=== PATIENT | female | born 1950 | race Caucasian/White ===

== ENCOUNTER 2017-04-25 05:19 | Day surgery (SDC) | payer MEDICARE, BC, OTHER ==
--- NOTE | ~2017-04-25 | EGD ---
EGD REPORT [facility] [address] [place] [address] NAME: ROSA MARIA SALAS : [birth year] STATUS : REG [facility]#: [id number] AGE: 66 ADM/REG DATE : 04/25/17 MR#: [id number] REPORT SERV DATE: 04/25/17 DICTATED BY: SUZETTE RENEE DATE: 04/25/17 REPORT STATUS : Draft [facility]ANS[facility]IBED [facility]: [facility] DATE: 04/25/17 Endoscopy Center Patient Name: Rosa Maria Salas Date of : 1950 Attending MD: MIKE RENEE MD Procedure Date No Time: 04/25/2017 Procedure: Colonoscopy Indications: Screening for colorectal malignant neoplasm, Last colonoscopy: September 2003 Referring MD: IESHA TRACY Medicines: See the Anesthesia note for documentation of the administered medications Complications: No immediate complications. Estimated blood loss: Minimal. Procedure: Pre-Anesthesia Assessment: - ASA Grade Assessment: III - A patient with severe systemic disease. After I obtained informed consent, the scope was passed under direct vision. Throughout the procedure, the patient's blood pressure, pulse, and oxygen saturations were monitored continuously. The PCF [id number] was introduced through the anus and advanced to the terminal ileum. The ileocecal valve, appendiceal orifice, terminal ileum and rectum were photographed. The entire colon was examined. The colonoscopy was performed without difficulty. The patient tolerated the procedure well. The quality of the bowel preparation was adequate. Findings: The perianal and digital rectal examinations were normal. The terminal ileum appeared normal. A single (solitary) eight mm ulcer was found in the proximal ascending colon. No bleeding was present. Biopsies were taken with a cold forceps for histology. A sessile polyp was found in the cecum. The polyp was 7 mm in size. The polyp was removed with a cold snare. Resection and retrieval were complete. A sessile polyp was found in the mid ascending colon. The polyp was 5 mm in size. The polyp was removed with a cold snare. Resection and retrieval were complete. A few medium-mouthed diverticula were found in the entire colon. Non-bleeding internal hemorrhoids were found, and they were Grade I (internal hemorrhoids that do not prolapse). No other significant abnormalities were identified in a careful examination of the remainder of the colon. EGD REPORT [place] [id number] [facility] [place]. [address] NAME: ROSA MARIA SALAS : [birth year] STATUS : [facility]#: [id number] AGE: 66 ADM/REG DATE : 04/25/17 MR#: [id number] REPORT SERV DATE: 04/25/17 DICTATED BY: SUZETTE RENEE DATE: 04/25/17 REPORT STATUS : Draft TRANSCRIBED BY: [employer] DATE: 04/25/17 Impression: - The examined portion of the ileum was normal. - A single (solitary) ulcer in the proximal ascending colon. Biopsied. - One 7 mm polyp in the cecum. Resected and retrieved. - One 5 mm polyp in the mid ascending colon. Resected and retrieved. - Diverticulosis in the entire examined colon. - Non-bleeding internal hemorrhoids. Recommendation: - Patient has a contact number available for emergencies. The signs and symptoms of potential delayed complications were discussed with the patient. Return to normal activities tomorrow. Written discharge instructions were provided to the patient. - High fiber diet indefinitely. - Discharge patient to home. - Continue present medications. - Await pathology results. - Repeat colonoscopy in 3 years for surveillance. - Mesenteric doppler ordered please check result Procedure Code(s): --- Professional --- 04488, Colonoscopy, flexible, proximal to splenic flexure; with removal of tumor(s), polyp(s), or other lesion(s) by snare technique 04446, 59, Colonoscopy, flexible, proximal to splenic flexure; with biopsy, single or multiple Diagnosis Code(s): --- Professional --- K64.0, First degree hemorrhoids K57.30, Diverticulosis of large intestine without perforation or abscess without bleeding K63.3, Ulcer of intestine D12.2, Benign neoplasm of ascending colon D12.0, Benign neoplasm of cecum Z12.11, Encounter for screening for malignant neoplasm of colon CPT copyright 2013 [employer]. All rights reserved. The codes documented in this report are preliminary and upon structural engineer review may be revised to meet current compliance requirements. MIKE RENEE MD EGD REPORT [facility] [address] [id number] NAME: ROSA MARIA SALAS : [birth year] STATUS : REG [facility] PAT#: [id number] AGE: 66 ADM/REG DATE : 04/25/17 MR#: [id number] REPORT SERV DATE: 04/25/17 DICTATED BY: SUZETTE RENEE DATE: 04/25/17 REPORT STATUS : Draft TRANSCRIBED BY: [employer] DATE: 04/25/17 04/25/2017 7:35 AM This report has been signed electronically. Number of Addenda: 0 Note Initiated On: 04/25/2017 7:01 AM Scope Withdrawal Time 0 hours 16 minutes 8 seconds [id number] [id number]
[~2017-04-25 05:19] MED LIST: ASAB PO; B121000P IM; CITRACAL PO; CLARIT10 PO; FISH-EPA1000 MG PO; IMDUR30 PO; KLOR-CON M2020 MEQ PO; MAGOX4 PO; NEXIUM40 PO; NORV10 PO; NORV5 PO; OCUFLOX OPH; PROAIR HFA INH; SPIRO50 PO; SYN125 PO; TOPXL50 PO; TRICOR145 PO; TUSSIN COU15 MG/5 ML PO; VITAMIN B-121000 MC1 SL; VITAMIN D31000 UNIT PO; Z300 PO
[2017-05-16] MEDS ORDERED: B121000P IM (22:55)
[2017-05-16] MEDS ORDERED: MAGOX4 PO (22:55)
[2017-05-16] MEDS ORDERED: ZOFRAN4 PO (22:56)
[2017-05-16] MEDS ORDERED: PROBIOTIC CAPSULE PO (22:56)
[2017-05-16] MEDS ORDERED: HALF81 PO (22:56)
[2017-05-16] MEDS ORDERED: CIP5 PO (22:56)
[2017-05-16] MEDS ORDERED: TOPXL50 PO (22:57)
[2017-05-16] MEDS ORDERED: FLAG500TAB PO (22:57)
[2017-05-16] MEDS ORDERED: Z300 PO (22:57)
[2017-05-16] MEDS ORDERED: LEVOTHYROXIN125 MCG PO (22:57)
[2017-05-16] MEDS ORDERED: SPIRO50 PO (22:58)
[2017-05-16] MEDS ORDERED: TRICOR145 PO (22:58)
[2017-05-16] MEDS ORDERED: CLARIT10 PO (22:58)
[2017-05-16] MEDS ORDERED: NORV10 PO (22:58)
[2017-05-16] MEDS ORDERED: PROAIR HFA INH (22:59)
[2017-05-16] MEDS ORDERED: KLOR-CON M2020 MEQ PO (22:59)
[2017-05-16] MEDS ORDERED: NEXIUM40 PO (23:00)
[2017-05-19] MEDS ORDERED: CITRACAL PO (09:46)
== END 2017-04-25 23:59 | disposition home or self-care (01) ==
LOC: DMU 05:19
PROVIDERS: Internal Medicine Gastroenterology
PROC: 0DBK8ZZ Excision of Ascending Colon, Via Natural or Artificial Opening Endoscopic (ICD-10-PCS; 2017-04-25)
PROC: 0DBK8ZX Excision of Ascending Colon, Via Natural or Artificial Opening Endoscopic, Diagnostic (ICD-10-PCS; principal; 2017-04-25 07:00)
PROC: 0DBH8ZZ Excision of Cecum, Via Natural or Artificial Opening Endoscopic (ICD-10-PCS; 2017-04-25 07:00)
DX: Z12.11 Encounter for screening for malignant neoplasm of colon (principal); D12.0 Benign neoplasm of cecum; D12.2 Benign neoplasm of ascending colon; K63.3 Ulcer of intestine; K64.0 First degree hemorrhoids; K57.30 Diverticulosis of large intestine without perforation or abscess without bleeding; I12.9 Hypertensive chronic kidney disease with stage 1 through stage 4 chronic kidney disease, or unspecified chronic kidney disease; N18.3 Chronic kidney disease, stage 3 (moderate); K21.9 Gastro-esophageal reflux disease without esophagitis; J47.9 Bronchiectasis, uncomplicated; E89.0 Postprocedural hypothyroidism; Z90.710 Acquired absence of both cervix and uterus; Z98.890 Other specified postprocedural states; J45.909 Unspecified asthma, uncomplicated; H91.90 Unspecified hearing loss, unspecified ear; I10 Essential (primary) hypertension; E78.00 Pure hypercholesterolemia, unspecified; Z79.899 Other long term (current) drug therapy
CPT/HCPCS: 88305